=== PATIENT | male | born 1950 | race Caucasian/White ===

== ENCOUNTER → 2018-07-02 08:10 | Outpatient (CLI) | payer MEDICARE, OTHER, SELFPAY ==
--- NOTE | 2018-07-02 | DI.RAD.S_ITS ---
PROCEDURE: XR CHEST 2V INDICATIONS: COUGH VARIANT ASTHMA TECHNIQUE: 2 views of the chest were acquired. COMPARISON: None. FINDINGS: Surgical changes and devices: None. Lungs and pleura: Lungs are clear. No pleural effusions or pneumothorax. Mediastinum: Mediastinal contours are normal. Heart size is normal. Bones and chest wall: No suspicious bony abnormalities. Soft tissues appear unremarkable. IMPRESSION: No acute cardiopulmonary disease. Dictated by: Jessy Bernal M.D. on 07/02/2018 at 8:55 Approved by: Jessy Bernal M.D. on 07/02/2018 at 8:55
== END ==
PROVIDERS: PCP Internal Medicine; Visit Provider Internal Medicine
DX: J45.991 Cough variant asthma (principal)
CPT/HCPCS: 71046

== ENCOUNTER → 2018-11-08 13:37 | Outpatient (CLI) | payer MEDICARE, OTHER, SELFPAY ==
[2018-11-08 14:09] LABS: Add Manual Diff / Slide Review NO; Basophils Absolute Auto 100 /uL (0-100); Basophils Percent Auto 0.6 % (0-2); Eosinophils Absolute Auto 200 /uL (0-450); Eosinophils Percent Auto 2.1 % (2-4); Hematocrit 45.1 % (41-53); Hemoglobin 15.1 g/dL (13.5-17.5); Lymphocytes Absolute Auto 2200 /uL (1100-4500); Lymphocytes Percent Auto 25.9 % (25-40); Mean Corpuscular HGB Conc 33.5 % (30-36); Mean Corpuscular Hemoglobin 30.7 PG (26-34); Mean Corpuscular Volume 91.9 fL (80-100); Monocytes Absolute Auto 600 /uL (0-900); Neutrophils Absolute Auto 5400 /uL (1500-7000); Neutrophils Percent Auto 64.4 % (50-75); Platelet Count 251 X10^3/uL (150-400); Red Blood Cell Count 4.91 X10^6/uL (4.5-5.9); Red Cell Distribution Width 13.6 % (11.6-14.8); White Blood Cell Count 8.4 X10^3/uL (4.5-11.0)
[2018-11-08 14:12] LABS: Hemoglobin A1C% w Est Avg Glu 6.2 % (4.0-6.0)
[2018-11-08 14:27] LABS: B Type Natriuretic Peptide < 100 (<100)
[2018-11-08 14:42] LABS: Alanine Aminotransferase 48 IU/L (21-72); Albumin 4.1 g/dL (3.5-5.0); Albumin Globulin Ratio 1.2 (1.0-2.8); Alkaline Phosphatase 78 U/L (38-126); Aspartate Aminotransferase 38 IU/L (17-59); BUN Creatinine Ratio 18.9 (6-22); Bilirubin Total 0.5 mg/dL (0.2-1.3); Blood Urea Nitrogen 17 mg/dL (9-20); Calcium 9.5 mg/dL (8.4-10.2); Carbon Dioxide 24 mmol/L (22-32); Chloride 102 mmol/L (98-107); Cholesterol 150 mg/dL (140-199); Estimated Glomerular Filt Rate > 60.0 mL/min (>60); Globulin 3.3 g/dL (1.7-4.1); Glucose 123 mg/dL (80-110); HDL Cholesterol 43 mg/dL (40-60); HEMOLYSIS 16 (0-50); LDL Cholesterol Calculated 72 mg/dL (<100); Potassium 3.8 mmol/L (3.4-5.1); Sodium 138 mmol/L (137-145); Total Protein 7.4 g/dL (6.3-8.2); Triglycerides 177 mg/dL (35-150)
[2018-11-08 15:11] LABS: TSH w/ Reflex to FT4 1.46 uIU/mL (0.47-4.68)
== END ==
PROVIDERS: PCP Internal Medicine; Visit Provider Internal Medicine
DX: I10 Essential (primary) hypertension (principal); E78.5 Hyperlipidemia, unspecified; I51.7 Cardiomegaly; I48.0 Paroxysmal atrial fibrillation; R73.03 Prediabetes; Z86.010 Personal history of colon polyps
CPT/HCPCS: 36415; 80053; 80061; 83036; 83880; 84443; 85025

== ENCOUNTER → 2019-03-18 14:54 | Outpatient (CLI) | payer MEDICARE, OTHER, SELFPAY ==
--- NOTE | 2019-03-18 | DI.RAD.S_ITS ---
PROCEDURE: XR CHEST 2V INDICATIONS: PERSISTANT COUGH FOR 3 WEEKS OR LONGER TECHNIQUE: 2 views of the chest were acquired. COMPARISON: [facility], CR, XR CHEST 2V, 07/02/2018, 8:19. FINDINGS: Surgical changes and devices: None. Lungs and pleura: Lungs are clear. No pleural effusions or pneumothorax. Mediastinum: Mediastinal contours are normal. Heart size is normal. Bones and chest wall: No suspicious bony abnormalities. Soft tissues appear unremarkable. IMPRESSION: No acute disease Dictated by: Madhu Sood M.D. on 03/18/2019 at 16:15 Approved by: Madhu Sood M.D. on 03/18/2019 at 16:20
== END ==
PROVIDERS: Family Provider Internal Medicine; PCP Internal Medicine; Visit Provider Internal Medicine
DX: R05 Cough (principal)
CPT/HCPCS: 71046

== ENCOUNTER → 2019-03-25 08:45 | Outpatient (CLI) | payer MEDICARE, OTHER, SELFPAY ==
--- NOTE | 2019-03-29 08:36 | PM.PFT.1 ---
Pulmonary Function Test Referral & Results Date Patient Seen: 03/25/19 Requesting provider: Cinthya Bianchi Results: The spirometry demonstrates an FVC of 3.79 L which is 88% of predicted. The FEV1 was measured at 2.65 L which is 83% of predicted. The FEV1/FVC ratio was 70 which is 94% of predicted. Following the administration of bronchodilator there was no appreciable change. Lung volumes show an SVC of 4.29 L which is 96% of predicted. The diffusing capacity was measured at 25.86 which is 83% of predicted. No hemoglobin value was provided, so no correction for potential anemia could be made, if appropriate. The maximum voluntary ventilation was normal Interpretation: This study demonstrates perhaps very mild obstructive lung disease based on slight reduction FEV1 and shape of flow volume loop. There is not appear to be evidence of benefit following bronchodilator administration
== END ==
PROVIDERS: PCP Internal Medicine; Visit Provider Internal Medicine
DX: R05 Cough (principal); Z87.891 Personal history of nicotine dependence
CPT/HCPCS: 94060; 94726; 94729

== ENCOUNTER → 2019-10-02 08:05 | Outpatient (CLI) | payer MEDICARE, OTHER, SELFPAY ==
[2019-10-02 10:03] LABS: Alanine Aminotransferase 57 IU/L (<50); Albumin 3.9 g/dL (3.5-5.0); Albumin Globulin Ratio 1.3 (1.0-2.8); Alkaline Phosphatase 74 U/L (38-126); Aspartate Aminotransferase 49 IU/L (17-59); BUN Creatinine Ratio 24.1 (6-22); Bilirubin Total 0.6 mg/dL (0.2-1.3); Bilirubin Unconjugated 0.5 mg/dL (0.0-1.1); Blood Urea Nitrogen 20 mg/dL (9-20); Calcium 9.2 mg/dL (8.4-10.2); Carbon Dioxide 27 mmol/L (22-32); Chloride 104 mmol/L (98-107); Estimated Glomerular Filt Rate > 60.0 mL/min (>60); Globulin 3.1 g/dL (1.7-4.1); Glucose 126 mg/dL (80-110); HEMOLYSIS < 15 (0-50); Potassium 4.2 mmol/L (3.4-5.1); Sodium 138 mmol/L (137-145)
== END ==
PROVIDERS: Family Provider Internal Medicine; PCP Internal Medicine; Referring Provider Nurse Practitioner Family; Visit Provider Nurse Practitioner Family
DX: I48.91 Unspecified atrial fibrillation (principal)
CPT/HCPCS: 36415; 80053; 80076

== ENCOUNTER → 2020-01-11 08:08 | Outpatient (CLI) | payer MEDICARE, OTHER, SELFPAY ==
[2020-01-11 09:05] LABS: Add Manual Diff / Slide Review NO; Basophils Absolute Auto 100 /uL (0-100); Basophils Percent Auto 1.2 % (0-2); Eosinophils Absolute Auto 200 /uL (0-450); Eosinophils Percent Auto 2.6 % (2-4); Hematocrit 43.1 % (41-53); Hemoglobin 14.5 g/dL (13.5-17.5); Lymphocytes Absolute Auto 2200 /uL (1100-4500); Lymphocytes Percent Auto 32.6 % (25-40); Mean Corpuscular HGB Conc 33.6 % (30-36); Mean Corpuscular Hemoglobin 30.5 PG (26-34); Monocytes Absolute Auto 500 /uL (0-900); Monocytes Percent Auto 7.7 % (3-14); Neutrophils Absolute Auto 3800 /uL (1500-7000); Neutrophils Percent Auto 55.9 % (50-75); Platelet Count 240 X10^3/uL (150-400); Red Blood Cell Count 4.73 X10^6/uL (4.5-5.9); Red Cell Distribution Width 13.7 % (11.6-14.8); White Blood Cell Count 6.7 X10^3/uL (4.5-11.0)
[2020-01-11 09:21] LABS: Hemoglobin A1C% w Est Avg Glu 6.7 % (4.0-6.0)
[2020-01-11 09:23] LABS: Alanine Aminotransferase 33 IU/L (<50); Albumin 4.1 g/dL (3.5-5.0); Albumin Globulin Ratio 1.2 (1.0-2.8); Alkaline Phosphatase 83 U/L (38-126); Aspartate Aminotransferase 32 IU/L (17-59); Bilirubin Total 0.4 mg/dL (0.2-1.3); Blood Urea Nitrogen 16 mg/dL (9-20); Calcium 9.3 mg/dL (8.4-10.2); Carbon Dioxide 27 mmol/L (22-32); Chloride 104 mmol/L (98-107); Cholesterol 119 mg/dL (140-199); Estimated Glomerular Filt Rate > 60.0 mL/min (>60); Globulin 3.3 g/dL (1.7-4.1); Glucose 126 mg/dL (80-110); HDL Cholesterol 31 mg/dL (40-60); HEMOLYSIS < 15 (0-50); LDL Cholesterol Calculated 76 mg/dL (<100); Potassium 3.9 mmol/L (3.4-5.1); Sodium 139 mmol/L (137-145); Total Protein 7.4 g/dL (6.3-8.2); Triglycerides 60 mg/dL (35-150)
[2020-01-11 09:49] LABS: TSH w/ Reflex to FT4 1.12 uIU/mL (0.47-4.68)
== END ==
PROVIDERS: Family Provider Internal Medicine; PCP Internal Medicine; Referring Provider Internal Medicine; Visit Provider Internal Medicine
DX: I10 Essential (primary) hypertension (principal); E78.5 Hyperlipidemia, unspecified; R73.03 Prediabetes; Z12.5 Encounter for screening for malignant neoplasm of prostate; I48.0 Paroxysmal atrial fibrillation
CPT/HCPCS: 36415; 80053; 80061; 83036; 84153; 84443; 85025

== ENCOUNTER → 2020-03-30 12:54 | Outpatient (CLI) | payer MEDICARE, OTHER, SELFPAY ==
--- NOTE | 2020-03-30 | DI.CT.S_ITS ---
PROCEDURE: CT SINUS SCREEN WO CON INDICATIONS: Chronic pansinusitis TECHNIQUE: Noncontrast 3.0 mm axial images acquired from the frontal sinuses to the mid-sella, with coronal and sagittal reformats. For radiation dose reduction, the following was used: automated exposure control, adjustment of mA and/or kV according to patient size. COMPARISON: None. FINDINGS: Image quality: Excellent. Maxillary Sinuses: Moderate mucosal thickening is seen within the right maxillary sinus. There is minimal to mild mucosal thickening within the left maxillary sinus. No significant bony changes are seen. Ethmoid Air Cells: No bony remodeling or destruction. Sinuses are clear. Sphenoid Sinuses: No bony remodeling or destruction. Sinuses are clear. Frontal Sinuses: No bony remodeling or destruction. Mild mucosal thickening is seen within the inferior left frontal sinus. Ostiomeatal Complexes: Ostiomeatal complexes are patent. No Alvino cells. Miscellaneous: Visualized intra-orbital contents are normal. There are small bilateral jose bullosa. There is minimal rightward nasal septal deviation. IMPRESSION: Paranasal sinus disease is seen, which is most prominent within the right maxillary sinus. Dictated by: Tanner Zuniga M.D. on 03/30/2020 at 13:16 Approved by: Tanner Zuniga M.D. on 03/30/2020 at 13:17
== END ==
PROVIDERS: Family Provider Internal Medicine; PCP Internal Medicine; Referring Provider Internal Medicine; Visit Provider Otolaryngology
DX: J32.4 Chronic pansinusitis (principal); J34.89 Other specified disorders of nose and nasal sinuses; R09.82 Postnasal drip
CPT/HCPCS: 70486

== ENCOUNTER → 2020-07-03 08:15 | Outpatient (CLI) | payer MEDICARE, OTHER, SELFPAY ==
--- NOTE | 2020-07-03 08:16 | DI.US.S_ITS ---
PROCEDURE: US ABD AORTA ANEURYSM SCREEN INDICATIONS: AAA SCREEN TECHNIQUE: Real time scanning was performed of the aorta and iliac arteries, with image documentation. COMPARISON: None. FINDINGS: Aorta: Proximal aortic obscured by bowel gas. Mid-aorta measures 1.5 cm. Distal aortic diameter is 1.4 cm. Iliac arteries: Right common iliac artery measures 0.9 cm. Left common iliac artery measures 1.1 cm. IMPRESSION: No evidence of abdominal aortic aneurysm. Please note proximal abdominal aorta is obscured by bowel gas and cannot be evaluated. Dictated by: Thelma Eduardo MD, PhD on 07/03/2020 at 9:57 Approved by: Thelma Eduardo MD, PhD on 07/03/2020 at 9:58
== END ==
PROVIDERS: Family Provider Internal Medicine; PCP Student in an Organized Health Care Education/Training Program; Referring Provider Student in an Organized Health Care Education/Training Program; Visit Provider Student in an Organized Health Care Education/Training Program
DX: Z13.6 Encounter for screening for cardiovascular disorders (principal); Z87.891 Personal history of nicotine dependence
CPT/HCPCS: 76706

== ENCOUNTER → 2020-07-27 15:55 | Outpatient (CLI) | payer MEDICARE, OTHER, SELFPAY ==
[2020-07-27 16:53] LABS: Add Manual Diff / Slide Review NO; Basophils Absolute Auto 100 /uL (0-100); Basophils Percent Auto 1.3 % (0-2); Eosinophils Absolute Auto 200 /uL (0-450); Eosinophils Percent Auto 3.2 % (2-4); Hemoglobin 13.9 g/dL (13.5-17.5); Lymphocytes Absolute Auto 2500 /uL (1100-4500); Lymphocytes Percent Auto 33.3 % (25-40); Mean Corpuscular HGB Conc 33.9 % (30-36); Mean Corpuscular Hemoglobin 30.4 PG (26-34); Mean Corpuscular Volume 89.9 fL (80-100); Monocytes Absolute Auto 600 /uL (0-900); Monocytes Percent Auto 7.5 % (3-14); Neutrophils Absolute Auto 4200 /uL (1500-7000); Neutrophils Percent Auto 54.7 % (50-75); Platelet Count 260 X10^3/uL (150-400); Red Blood Cell Count 4.56 X10^6/uL (4.5-5.9); Red Cell Distribution Width 13.6 % (11.6-14.8); White Blood Cell Count 7.6 X10^3/uL (4.5-11.0)
[2020-07-27 17:16] LABS: BUN Creatinine Ratio 18.6 (6-22); Blood Urea Nitrogen 16 mg/dL (9-20); Calcium 9.4 mg/dL (8.4-10.2); Carbon Dioxide 28 mmol/L (22-32); Chloride 102 mmol/L (98-107); Cholesterol 149 mg/dL (140-199); Estimated Glomerular Filt Rate > 60.0 mL/min (>60); Glucose 108 mg/dL (80-110); HDL Cholesterol 34 mg/dL (40-60); HEMOLYSIS < 15 (0-50); LDL Cholesterol Calculated 75 mg/dL (<100); Potassium 3.9 mmol/L (3.4-5.1); Sodium 138 mmol/L (137-145); Triglycerides 202 mg/dL (35-150)
[2020-07-27 17:20] LABS: Hemoglobin A1C% w Est Avg Glu 6.6 % (4.0-6.0)
== END ==
PROVIDERS: Family Provider Internal Medicine; PCP Student in an Organized Health Care Education/Training Program; Referring Provider Internal Medicine Cardiovascular Disease; Visit Provider Internal Medicine Cardiovascular Disease
DX: I10 Essential (primary) hypertension (principal); R73.03 Prediabetes
CPT/HCPCS: 36415; 80048; 80061; 83036; 85025

== ENCOUNTER → 2020-11-26 07:29 | Outpatient (CLI) | payer MEDICARE, OTHER, SELFPAY ==
[2020-11-26 08:23] LABS: Add Manual Diff / Slide Review NO; Basophils Absolute Auto 100 /uL (0-100); Basophils Percent Auto 1.2 % (0-2); Eosinophils Absolute Auto 200 /uL (0-450); Hematocrit 44.9 % (41-53); Lymphocytes Absolute Auto 2700 /uL (1100-4500); Lymphocytes Percent Auto 40.5 % (25-40); Mean Corpuscular HGB Conc 33.4 % (30-36); Mean Corpuscular Volume 89.9 fL (80-100); Monocytes Absolute Auto 600 /uL (0-900); Monocytes Percent Auto 9.6 % (3-14); Neutrophils Absolute Auto 3000 /uL (1500-7000); Neutrophils Percent Auto 45.7 % (50-75); Platelet Count 220 X10^3/uL (150-400); Red Blood Cell Count 4.99 X10^6/uL (4.5-5.9); Red Cell Distribution Width 14.5 % (11.6-14.8); White Blood Cell Count 6.6 X10^3/uL (4.5-11.0)
[2020-11-26 08:40] LABS: BUN Creatinine Ratio 22.9 (6-22); Blood Urea Nitrogen 19 mg/dL (9-20); Calcium 9.4 mg/dL (8.4-10.2); Carbon Dioxide 28 mmol/L (22-32); Chloride 103 mmol/L (98-107); Estimated Glomerular Filt Rate > 60.0 mL/min (>60); Glucose 100 mg/dL (80-110); HEMOLYSIS < 15 (0-50); Potassium 4.1 mmol/L (3.4-5.1); Sodium 138 mmol/L (137-145)
== END ==
PROVIDERS: Family Provider Internal Medicine; PCP Student in an Organized Health Care Education/Training Program; Referring Provider Internal Medicine Cardiovascular Disease; Visit Provider Internal Medicine Cardiovascular Disease
DX: I48.0 Paroxysmal atrial fibrillation (principal)
CPT/HCPCS: 36415; 80048; 85025

== ENCOUNTER → 2021-01-14 08:10 | Outpatient (CLI) | payer MEDICARE, OTHER, SELFPAY ==
[2021-01-14 09:33] LABS: Hemoglobin A1C% w Est Avg Glu 5.6 % (4.0-6.0)
[2021-01-14 10:18] LABS: Prostate Specific Antigen Scrn 1.84 ng/mL (0.1-4.0)
== END ==
PROVIDERS: Family Provider Internal Medicine; PCP Student in an Organized Health Care Education/Training Program; Referring Provider Student in an Organized Health Care Education/Training Program; Visit Provider Student in an Organized Health Care Education/Training Program
DX: E11.9 Type 2 diabetes mellitus without complications (principal); Z12.5 Encounter for screening for malignant neoplasm of prostate
CPT/HCPCS: 36415; 83036; G0103

== ENCOUNTER 2021-03-16 17:47 | Emergency (ER) | payer MEDICARE, OTHER, SELFPAY ==
[2021-03-16 17:50] VITALS: BP 200/90; PULSE 85; RESP 20; TEMP 36.7; O2SAT 98
--- NOTE | 2021-03-16 17:54 | DI.RAD.S_ITS ---
PROCEDURE: XR CHEST 1V INDICATIONS: chest pain TECHNIQUE: One view of the chest was acquired. COMPARISON: [facility], CR, XR CHEST 2V, 03/18/2019, 14:55. FINDINGS: Surgical changes and devices: None. Lungs and pleura: Lungs are clear. No pleural effusions or pneumothorax. Mediastinum: Mildly tortuous thoracic aorta is seen. Heart size is enlarged. Bones and chest wall: No suspicious bony lesions. Overlying soft tissues appear unremarkable. IMPRESSION: No acute cardiopulmonary pathology. Dictated by: Salvador Cam M.D. on 03/16/2021 at 19:10 Approved by: Salvador Cam M.D. on 03/16/2021 at 19:11
[2021-03-16 18:27] LABS: Add Manual Diff / Slide Review NO; Basophils Absolute Auto 100 /uL (0-100); Basophils Percent Auto 0.7 % (0-2); Eosinophils Absolute Auto 200 /uL (0-450); Eosinophils Percent Auto 2.2 % (2-4); Hematocrit 41.7 % (41-53); Hemoglobin 14.5 g/dL (13.5-17.5); Lymphocytes Absolute Auto 2500 /uL (1100-4500); Lymphocytes Percent Auto 27.4 % (25-40); Mean Corpuscular HGB Conc 34.7 % (30-36); Mean Corpuscular Hemoglobin 31.3 PG (26-34); Mean Corpuscular Volume 90.2 fL (80-100); Monocytes Absolute Auto 600 /uL (0-900); Monocytes Percent Auto 6.6 % (3-14); Neutrophils Absolute Auto 5700 /uL (1500-7000); Neutrophils Percent Auto 63.1 % (50-75); Platelet Count 215 X10^3/uL (150-400); Red Blood Cell Count 4.63 X10^6/uL (4.5-5.9); Red Cell Distribution Width 14.3 % (11.6-14.8); White Blood Cell Count 9.1 X10^3/uL (4.5-11.0)
[2021-03-16 18:29] LABS: Alanine Aminotransferase 23 IU/L (<50); Albumin 4.4 g/dL (3.5-5.0); Albumin Globulin Ratio 1.4 (1.0-2.8); Alkaline Phosphatase 76 U/L (38-126); Aspartate Aminotransferase 29 IU/L (17-59); BUN Creatinine Ratio 22.2 (6-22); Bilirubin Total 0.4 mg/dL (0.2-1.3); Blood Urea Nitrogen 20 mg/dL (9-20); Calcium 9.1 mg/dL (8.4-10.2); Carbon Dioxide 26 mmol/L (22-32); Chloride 101 mmol/L (98-107); Creatine Kinase 111 U/L (55-170); Estimated Glomerular Filt Rate > 60.0 mL/min (>60); Globulin 3.2 g/dL (1.7-4.1); Glucose 168 mg/dL (80-110); HEMOLYSIS < 15 (0-50); Lipase 107 U/L (23-300); Potassium 3.4 mmol/L (3.4-5.1); Sodium 136 mmol/L (137-145); Total Protein 7.6 g/dL (6.3-8.2)
[2021-03-16 18:40] LABS: Troponin I < 0.012 ng/mL (0.01-0.034)
[2021-03-16 18:44] LABS: CKMB % Relative Index 1.4 % (1.5-5.0); Creatine Kinase MB 1.53 ng/mL (<2.37)
[2021-03-16 18:54] VITALS: PULSE 69; RESP 24; O2SAT 98
[2021-03-16 19:00] VITALS: PULSE 65; RESP 13; O2SAT 98
[2021-03-16 19:09] VITALS: BP 143/64; PULSE 76; RESP 25; O2SAT 94
--- NOTE | 2021-03-16 19:18 | ED.ARRPALP ---
HPI - Arrhythmia/Palpitations General Chief Complaint: Arrhythmia/Palpitations Stated Complaint: STATES IRRATIC HEARTRATE Time Seen by Provider: 03/16/21 18:25 Source: patient Mode of arrival: Ambulatory History of Present Illness HPI narrative: Patient is a 70-year-old male. Does have a history of atrial fibrillation. Is anticoagulated for this. Takes medications for AFib as well. States that earlier this afternoon he was having an episode where he states that his heart was beating fast and skipping beats beating very abnormal. He denies any chest pain or shortness of breath or lightheadedness that time. At the time I evaluated the patient he was asymptomatic. He did take his evening medicine during the period of time between the onset of the symptoms and his evaluation here in the ER. Related Data Home Medications Medication Instructions Recorded Confirmed flecainide 100 mg tablet 100 mg PO BID #0 04/27/16 12/07/20 glucosamine #0 04/27/16 12/07/20 sulfate-methylsulfonylmethane 250 mg-250 mg capsule multivitamin (Multiple Vitamins) 1 tab PO QDAY #0 04/27/16 12/07/20 omega 6-hwx-vqx-fish oil 1,000 mg 1,000 mg PO #0 04/27/16 12/07/20 (120 mg-180 mg) capsule (Fish Oil) albuterol sulfate 90 mcg/actuation 2 puff INHALATION Q6H PRN 07/01/20 12/07/20 aerosol inhaler apixaban 5 mg tablet (Eliquis) 5 mg PO BID 08/27/20 12/07/20 Previous Rx's Medication Instructions Recorded atenolol 25 mg tablet 25 mg PO QDAY #90 tab 10/28/20 triamterene 37.5 1 tab PO QDAY #90 tab 10/28/20 mg-hydrochlorothiazide 25 mg tablet Allergies Allergy/AdvReac Type Severity Reaction Status Date / Time No Known Drug Allergies Allergy Unverified 12/07/20 10:26 Review of Systems Constitutional Constitutional: Denies headache(s) ENT Ears, Nose, Mouth, and Throat: Denies vertigo, Denies dizziness and Denies headache(s) Cardiovascular Cardiovascular: Reports as per HPI and Reports system reviewed and no additional complaints, except as documented Respiratory Respiratory: Reports as per HPI and Reports system reviewed and no additional complaints, except as documented Neurologic Neurologic: Denies vertigo, Denies dizziness and Denies headache(s) Hematologic/Lymphatic On Anticoagulants: Yes Patient History Medical History Atrial fibrillation Diet-controlled type 2 diabetes mellitus Essential hypertension Social History Smoking Status: Former smoker Smoking Status: Former smoker Exam Initial Vital Signs Initial Vital Signs: Vital Signs Temperature 98.1 F 03/16/21 17:50 Pulse Rate 85 03/16/21 17:50 Respiratory Rate 20 03/16/21 17:50 Blood Pressure 200/90 H 03/16/21 17:50 Pulse Oximetry 98 03/16/21 17:50 Const General: cooperative, healthy appearing and comfortable Limitations: mental status not altered HENMT Head: normal to inspection and normocephalic Neck Neck: normal visual inspection Resp Effort & Inspection: normal respiratory effort Auscultation: clear to auscultation bilaterally Cardio Rate: regular rate Rhythm: regular rhythm GI Inspection: non-distended Palpation: soft Back/Spine/Pelvis Back: normal to inspection Skin General: no rashes or lesions noted Neuro General: patient alert, patient awake, patient oriented x3 and moves all extremities Extrem General: normal to inspection Psych Appearance: grossly normal and well kempt Course Orders Ordered: ED Orders 03/16/21 17:54 XR chest 1V Stat EKG-12 Lead Stat 03/16/21 18:08 Complete Blood Count AUTO DIFF Stat Comprehensive Metabolic Panel Stat Lipase Stat Troponin & CK Cardiac Panel Stat Vital Signs Vital signs: Vital Signs - 8 hr 03/16/21 17:50 03/16/21 18:54 03/16/21 19:00 Temperature 98.1 F Pulse Rate 85 69 65 Respiratory Rate 20 24 13 Blood Pressure 200/90 H Pulse Oximetry 98 98 98 03/16/21 19:09 Temperature Pulse Rate 76 Respiratory Rate 25 H Blood Pressure 143/64 H Pulse Oximetry 94 MDM - Arrhythmia/Palpitations Lab Data Attestation: I reviewed the patient's lab results. Result diagrams: 03/16/21 18:08 03/16/21 18:08 Labs: Lab Results 03/16/21 03/16/21 Range/Units 18:08 18:08 WBC 9.1 (4.5-11.0) X10^3/uL RBC 4.63 (4.5-5.9) X10^6/uL Hgb 14.5 (13.5-17.5) g/dL Hct 41.7 (41-53) % MCV 90.2 (80-100) fL MCH 31.3 (26-34) PG MCHC 34.7 (30-36) % RDW 14.3 (11.6-14.8) % Plt Count 215 (150-400) X10^3/uL Neut % (Auto) 63.1 (50-75) % Lymph % (Auto) 27.4 (25-40) % Posey % (Auto) 6.6 (3-14) % Eos % (Auto) 2.2 (2-4) % Baso % (Auto) 0.7 (0-2) % Neut # (Auto) 5700 (9945-0051) /uL Lymph # (Auto) 2500 (8656-1976) /uL Posey # (Auto) 600 (0-900) /uL Eos # (Auto) 200 (0-450) /uL Baso # (Auto) 100 (0-100) /uL Sodium 136 L (137-145) mmol/L Potassium 3.4 (3.4-5.1) mmol/L Chloride 101 (98-107) mmol/L Carbon Dioxide 26 (22-32) mmol/L BUN 20 (9-20) mg/dL Creatinine 0.90 (0.66-1.25) mg/dL Estimated GFR > 60.0 (>60) mL/min BUN/Creatinine Ratio 22.2 H (6-22) Glucose 168 H (80-110) mg/dL Calcium 9.1 (8.4-10.2) mg/dL Total Bilirubin 0.4 (0.2-1.3) mg/dL AST 29 (17-59) IU/L ALT 23 (<50) IU/L Alkaline Phosphatase 76 (38-126) U/L Total Creatine Kinase 111 (55-170) U/L CK-MB (CK-2) 1.53 (<2.37) ng/mL CK-MB (CK-2) Rel Index 1.4 L (1.5-5.0) % Troponin I < 0.012 (0.01-0.034) ng/mL Total Protein 7.6 (6.3-8.2) g/dL Albumin 4.4 (3.5-5.0) g/dL Globulin 3.2 (1.7-4.1) g/dL Albumin/Globulin Ratio 1.4 (1.0-2.8) Lipase 107 (23-300) U/L Imaging Data Chest x-ray: Radiologist's Impresson: [address] [address] XRay Report Signed Patient: Prem Gale MR#: [id number] : 1950 Acct:[id number] Age/Sex: 70 / M Date of Service: 03/16/21 Loc: ED Accession Number: [id number] ?? Procedure: XR chest 1V Ordering Provider: Del Augustine D.O. PROCEDURE:? XR CHEST 1V ? INDICATIONS:? chest pain ? TECHNIQUE:? One view of the chest was acquired.? ? COMPARISON:? [facility], CR, XR CHEST 2V, 03/18/2019, 14:55. ? FINDINGS:? ? Surgical changes and devices:? None.? ? Lungs and pleura:? Lungs are clear.? No pleural effusions or pneumothorax.? ? Mediastinum:? Mildly tortuous thoracic aorta is seen.? Heart size is enlarged. ? Bones and chest wall:? No suspicious bony lesions.? Overlying soft tissues appear unremarkable.? ? IMPRESSION:? No acute cardiopulmonary pathology. ? ? Dictated by: Salvador Cam M.D. on 03/16/2021 at 19:10 ? ? Approved by: Salvador Cam M.D. on 03/16/2021 at 19:11?? ECG Data Attestation: I personally reviewed and interpreted this ECG as follows: Interpretation: Sinus rhythm First-degree AV block KS interval 284 milliseconds Ventricular rate 80 Occasional PACs Normal QTC No ST T wave changes MDM Narrative Medical decision making narrative: Patient did have couple PVCs on his EKG. He was in sinus rhythm. Was asymptomatic the time of my exam. I did discuss this with the patient. We did discuss the possibility that he was in atrial fibrillation however the medicines that he took at home potentially to care this issue. We did discuss the limitations with regard to the workup in the EKG performed here in the ER. 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 Plan will be is to hold on further workup for now. Will not make any changes to his medications. 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 He was given return precautions and follow-up instructions. He expressed understanding and agreement. Discharge Plan Departure Patient Disposition: Home Clinical Impression: Palpitations Instructions: Arrhythmias Activity Restrictions/Additional Instructions: I do recommend that you keep all of your scheduled medical appointments. Continue to take all of your medications as directed. Return to the emergency department for any new or worsening symptoms Prescriptions: No Action multivitamin [Multiple Vitamins] 1 EACH tablet 1 tab PO QDAY Qty: 0 0RF flecainide 100 MG tablet 100 mg PO BID Qty: 0 0RF glucosamine sulfate-msm 1 EACH capsule Qty: 0 0RF omega 7-ppw-pbm-fish oil [Fish Oil] 1,000 MG capsule 1,000 mg PO Qty: 0 0RF atenolol 25 mg tablet 25 mg PO QDAY Qty: 90 2RF triamterene-hydrochlorothiazid 37.5-25 mg tablet 1 tab PO QDAY Qty: 90 2RF albuterol sulfate 90 mcg/actuation HFA aerosol inhaler 2 puff inhalation Q6H PRN0RF Eliquis 5 mg tablet 5 mg PO BID 0RF Referrals: Jonathan Jacques MD [Primary Care Provider] -
== END 2021-03-16 19:27 | disposition home or self-care (01) ==
PROVIDERS: Emergency Provider Emergency Medicine; Family Provider Internal Medicine; PCP Student in an Organized Health Care Education/Training Program
DX: I49.3 Ventricular premature depolarization (principal)
CPT/HCPCS: 71045; 80053; 82550; 82553; 83690; 84484; 85025; 93005; 93010; 99283; 99284

== ENCOUNTER → 2021-09-13 06:58 | Outpatient (CLI) | payer MEDICARE, OTHER, SELFPAY ==
[2021-09-13 07:38] LABS: Add Manual Diff / Slide Review NO; Basophils Absolute Auto 100 /uL (0-100); Basophils Percent Auto 1.3 % (0-2); Eosinophils Absolute Auto 200 /uL (0-450); Eosinophils Percent Auto 2.7 % (2-4); Hematocrit 41.7 % (41-53); Hemoglobin 14.4 g/dL (13.5-17.5); Lymphocytes Absolute Auto 2300 /uL (1100-4500); Lymphocytes Percent Auto 37.6 % (25-40); Mean Corpuscular HGB Conc 34.6 % (30-36); Mean Corpuscular Hemoglobin 31.4 PG (26-34); Mean Corpuscular Volume 90.8 fL (80-100); Monocytes Absolute Auto 500 /uL (0-900); Monocytes Percent Auto 7.9 % (3-14); Neutrophils Absolute Auto 3000 /uL (1500-7000); Neutrophils Percent Auto 50.5 % (50-75); Platelet Count 197 X10^3/uL (150-400); Red Blood Cell Count 4.59 X10^6/uL (4.5-5.9); Red Cell Distribution Width 14.2 % (11.6-14.8)
[2021-09-13 08:15] LABS: BUN Creatinine Ratio 23.9 (6-22); Blood Urea Nitrogen 21 mg/dL (9-20); Calcium 8.9 mg/dL (8.4-10.2); Carbon Dioxide 28 mmol/L (22-32); Chloride 105 mmol/L (98-107); Estimated Glomerular Filt Rate > 60 mL/min (>60); Glucose 110 mg/dL (80-110); HEMOLYSIS < 15 (0-50); Potassium 4.2 mmol/L (3.4-5.1); Sodium 139 mmol/L (137-145)
== END ==
PROVIDERS: Family Provider Internal Medicine; PCP Family Medicine; Referring Provider Internal Medicine Cardiovascular Disease; Visit Provider Internal Medicine Cardiovascular Disease
DX: Z79.01 Long term (current) use of anticoagulants (principal); I48.0 Paroxysmal atrial fibrillation
CPT/HCPCS: 36415; 80048; 85025

== ENCOUNTER → 2021-11-10 07:35 | Outpatient (CLI) | payer MEDICARE, OTHER, SELFPAY ==
[2021-11-10 08:18] LABS: Hemoglobin A1C% w Est Avg Glu 5.6 % (4.0-6.0)
== END ==
PROVIDERS: Family Provider Internal Medicine; PCP Family Medicine; Referring Provider Family Medicine; Visit Provider Family Medicine
DX: E11.9 Type 2 diabetes mellitus without complications (principal)
CPT/HCPCS: 36415; 83036

== ENCOUNTER → 2023-08-09 07:48 | Outpatient (CLI) | payer MEDICARE, SELFPAY ==
[2023-08-09 08:39] LABS: Add Manual Diff / Slide Review NO; Basophils Absolute Auto 100 /uL (0-100); Basophils Percent Auto 1.2 % (0-2); Eosinophils Absolute Auto 200 /uL (0-450); Eosinophils Percent Auto 2.4 % (2-4); Hemoglobin 14.6 g/dL (13.5-17.5); Lymphocytes Absolute Auto 2300 /uL (1100-4500); Lymphocytes Percent Auto 33.2 % (25-40); Mean Corpuscular Hemoglobin 31.2 PG (26-34); Mean Corpuscular Volume 91.9 fL (80-100); Monocytes Absolute Auto 600 /uL (0-900); Neutrophils Absolute Auto 3800 /uL (1500-7000); Neutrophils Percent Auto 54.2 % (50-75); Platelet Count 235 X10^3/uL (150-400); Red Blood Cell Count 4.68 X10^6/uL (4.5-5.9); Red Cell Distribution Width 14.3 % (11.6-14.8)
[2023-08-09 09:05] LABS: BUN Creatinine Ratio 23.5 (6-22); Blood Urea Nitrogen 20 mg/dL (9-20); Calcium 9.2 mg/dL (8.4-10.2); Carbon Dioxide 28 mmol/L (22-32); Chloride 104 mmol/L (98-107); Estimated Glomerular Filt Rate > 60 mL/min (>60); Glucose 118 mg/dL (80-110); HEMOLYSIS < 15 (0-50); Potassium 3.8 mmol/L (3.4-5.1); Sodium 138 mmol/L (137-145)
== END ==
PROVIDERS: Family Provider Internal Medicine; PCP Family Medicine; Referring Provider Internal Medicine Cardiovascular Disease; Visit Provider Internal Medicine Cardiovascular Disease
DX: I10 Essential (primary) hypertension (principal); I77.89 Other specified disorders of arteries and arterioles; Z79.01 Long term (current) use of anticoagulants
CPT/HCPCS: 36415; 80048; 85025

== ENCOUNTER 2023-08-10 21:33 | Emergency (ER) | payer MEDICARE, SELFPAY ==
[2023-08-10] VITALS (7 sets, daily range): BP systolic 155–201; BP diastolic 69–98; PULSE 72–82; RESP 18; TEMP 36.9; O2SAT 93–98; BMI 30.7
--- NOTE | 2023-08-10 22:03 | ED_ITS ---
HPI - General Adult General Chief complaint: Hypertension Stated complaint: very high blood pressure Time Seen by Provider: 08/10/23 21:51 Source: patient and family Mode of arrival: Ambulatory History of Present Illness HPI narrative: 73-year-old male with history of hypertension, atrial fibrillation on flecainide and Eliquis presents by private vehicle from home for elevated blood pressures. Patient stated that he went to a routine dental appointment this morning and when they took his vitals they told him he had high blood pressure. This evening he pulled out his home cuff and noticed that it was 180/90. He was very concerned at his high blood pressures and decided to present for evaluation. He is on atenolol and triamterene/hydrochlorothiazide. He denies any recent medication changes. Denies chest pain, shortness of breath, worst headache of life, vision changes, leg swelling. Patient admits that he does not frequently check his blood pressure as every time he goes to a doctor's appointment it was normal. Related Data Home Medications Medication Instructions Recorded Confirmed flecainide 100 mg tablet 100 mg PO BID ##0 04/27/16 12/07/20 glucosamine ##0 04/27/16 12/07/20 sulfate-methylsulfonylmethane 250 mg-250 mg capsule multivitamin (Multiple Vitamins 1 tab PO QDAY ##0 04/27/16 12/07/20 tablet) omega 5-qte-mxt-fish oil 1,000 mg 1,000 mg PO ##0 04/27/16 12/07/20 (120 mg-180 mg) capsule (Fish Oil) albuterol sulfate 90 mcg/actuation 2 puff inhalation Q6H PRN 07/01/20 12/07/20 aerosol inhaler apixaban 5 mg tablet (Eliquis) 5 mg PO BID 08/27/20 12/07/20 Previous Rx's Medication Instructions Recorded atenolol 25 mg tablet 25 mg PO QDAY #90 tabs 10/28/20 triamterene 37.5 1 tab PO QDAY #90 tabs 10/28/20 mg-hydrochlorothiazide 25 mg tablet amlodipine 5 mg tablet 5 mg PO DAILY #30 tabs 08/10/23 Allergies Allergy/AdvReac Type Severity Reaction Status Date / Time No Known Drug Allergies Allergy Unverified 12/07/20 10:26 Review of Systems Review of Systems Narrative: See HPI Patient History Medical History Atrial fibrillation Essential hypertension Diet-controlled type 2 diabetes mellitus Social History Smoking Status: Current some day smoker Smoking Status: Current some day smoker tobacco type: cigars alcohol intake frequency: 0-2 drinks per day Substance Use Type: does not use Exam Initial Vital Signs Initial Vital Signs: Vital Signs Temperature 98.4 F 08/10/23 21:41 Pulse Rate 74 08/10/23 21:41 Respiratory Rate 18 08/10/23 21:41 Blood Pressure 201/98 H 08/10/23 21:41 Pulse Oximetry 98 08/10/23 21:41 Oxygen Delivery Method Room Air 08/10/23 21:41 Const: Awake, alert, no acute distress, nontoxic appearing Cardiac: regular rate, regular rhythm RESP: unlabored, clear bilaterally, no wheezing GI: Soft, nontender, nondistended, no rebound, no guarding Skin: Warm, Dry, intact, no rashes Neuro: AO x3, CN II-XII grossly intact, moves all extremities Course Orders Ordered: ED Orders 08/10/23 22:03 EKG-12 Lead Stat 08/10/23 22:42 CBC Auto Diff [Complete Blood Count AUTO DIFF] Stat CMP [Comprehensive Metabolic Panel] Stat Troponin & CK Cardiac Panel Stat 08/10/23 23:02 UA Complete [Urinalysis and Microscopic] Stat Discontinued Medications Amlodipine Besylate (Amlodipine 5 Mg Tablet) 5 mg PO NOW ONE Stop: 08/10/23 23:30 Last Admin: 08/10/23 23:41 Dose: 5 mg Documented By: IGLESIA Vital Signs Vital signs: Vital Signs - 8 hr 08/10/23 22:30 08/10/23 22:30 08/10/23 23:03 Pulse Rate 73 82 Blood Pressure 155/69 H Pulse Oximetry 95 93 08/10/23 23:04 08/10/23 23:04 08/10/23 23:30 Pulse Rate 81 72 Blood Pressure 190/79 H Pulse Oximetry 95 95 08/10/23 23:30 Pulse Rate Blood Pressure 166/73 H Pulse Oximetry Medical Decision Making Lab Data 08/10/23 22:42 08/10/23 22:42 Labs: Lab Results 08/10/23 08/10/23 Range/Units 22:42 23:02 WBC 7.9 (4.5-11.0) X10^3/uL RBC 4.86 (4.5-5.9) X10^6/uL Hgb 15.2 (13.5-17.5) g/dL Hct 44.7 (41-53) % MCV 91.9 (80-100) fL MCH 31.3 (26-34) PG MCHC 34.1 (30-36) % RDW 14.2 (11.6-14.8) % Plt Count 234 (150-400) X10^3/uL Neut % (Auto) 57.3 (50-75) % Lymph % (Auto) 29.8 (25-40) % Isabella % (Auto) 9.4 (3-14) % Eos % (Auto) 2.8 (2-4) % Baso % (Auto) 0.7 (0-2) % Neut # (Auto) 4500 (0115-2550) /uL Lymph # (Auto) 2400 (5549-0768) /uL Isabella # (Auto) 700 (0-900) /uL Eos # (Auto) 200 (0-450) /uL Baso # (Auto) 100 (0-100) /uL Sodium 138 (137-145) mmol/L Potassium 3.6 (3.4-5.1) mmol/L Chloride 104 (98-107) mmol/L Carbon Dioxide 27 (22-32) mmol/L BUN 20 (9-20) mg/dL Creatinine 1.09 (0.66-1.25) mg/dL Estimated GFR > 60 (>60) mL/min BUN/Creatinine Ratio 18.3 (6-22) Glucose 107 (80-110) mg/dL Calcium 9.6 (8.4-10.2) mg/dL Total Bilirubin 0.5 (0.2-1.3) mg/dL AST 35 (17-59) IU/L ALT 36 (<50) IU/L Alkaline Phosphatase 89 (38-126) U/L Total Creatine Kinase 109 (55-170) U/L Troponin I < 0.012 (0.01-0.034) ng/mL Total Protein 8.4 H (6.3-8.2) g/dL Albumin 4.8 (3.5-5.0) g/dL Globulin 3.6 (1.7-4.1) g/dL Albumin/Globulin Ratio 1.3 (1.0-2.8) Urine Color Yellow Urine Appearance Clear Urine pH 6.0 (4.5-8.0) Ur Specific [place] 1.015 (1.000-1.035) Urine Protein Negative (Negative) Urine Glucose (UA) Negative (Negative) g/dL Urine Ketones Negative (NEGATIVE) Urine Occult Blood Negative (Negative) Urine Nitrate Negative (Negative) Urine Bilirubin Negative (NEGATIVE) Urine Urobilinogen 0.2 (0.2) E.U./dL Ur Leukocyte Esterase Negative (NEGATIVE) Urine RBC None seen (0-5/HPF) Urine WBC None seen (0-5/HPF) Ur Squamous Epith Cells None seen (0-5/HPF) Urine Bacteria None seen (None) Ur Culture Indicated? Cult not indicated Vol Urine Centrifuged 10ml (spun) MDM Narrative Medical decision making narrative: Asymptomatic hypertension, incidentally found due to dentist appointment this morning. Patient was hypertensive on arrival, however there are no signs or symptoms of hypertensive emergency. Laboratory work is reviewed, there are no abnormalities. Electrolytes are within normal limits, kidney function normal, EKG sinus rhythm. Patient counseled on lab findings and reassured. Patient states that he was about to go on a 2 week vacation with his to [place]. Patient will likely need medication adjustment for his vacation. Plan to avoid increasing his triamterene hydrochlorothiazide to prevent electrolyte disturbances such as hypokalemia. Plan to add on 5 mg daily amlodipine. Initial dose given in emergency department and prescription sent to pharmacy of choice. Patient advised to follow up with his primary care physician for his high blood pressure and to keep a daily BP log. Discharge Plan Departure Patient Disposition: Home Clinical Impression: Hypertension Instructions: DI for High Blood Pressure Activity Restrictions/Additional Instructions: Your blood work today showed no abnormal findings. I am starting you on a new low-dose blood pressure medication called amlodipine. Take 5 mg daily. Keep a daily blood pressure log and bring this to your next primary care appointment. Signs of hypertensive emergency include chest pain, shortness of breath, worst headache of life, or visual disturbances. Prescriptions: New amlodipine 5 mg tablet 5 mg PO DAILY Qty: 30 0RF No Action multivitamin [Multiple Vitamins] 1 EACH tablet 1 tab PO QDAY Qty: 0 flecainide 100 MG tablet 100 mg PO BID Qty: 0 glucosamine sulfate-msm 1 EACH capsule Qty: 0 omega 2-hsf-fnh-fish oil [Fish Oil] 1,000 MG capsule 1,000 mg PO Qty: 0 atenolol 25 mg tablet 25 mg PO QDAY Qty: 90 2RF triamterene-hydrochlorothiazid 37.5-25 mg tablet 1 tab PO QDAY Qty: 90 2RF albuterol sulfate 90 mcg/actuation HFA aerosol inhaler 2 puff inhalation Q6H PRN Eliquis 5 mg tablet 5 mg PO BID Referrals: Berenice Massey MD [Primary Care Provider] - Stand Alone Forms: Patient Portal/API
[2023-08-10 22:51] LABS: Add Manual Diff / Slide Review NO; Basophils Absolute Auto 100 /uL (0-100); Basophils Percent Auto 0.7 % (0-2); Eosinophils Absolute Auto 200 /uL (0-450); Eosinophils Percent Auto 2.8 % (2-4); Hematocrit 44.7 % (41-53); Hemoglobin 15.2 g/dL (13.5-17.5); Lymphocytes Absolute Auto 2400 /uL (1100-4500); Lymphocytes Percent Auto 29.8 % (25-40); Mean Corpuscular HGB Conc 34.1 % (30-36); Mean Corpuscular Hemoglobin 31.3 PG (26-34); Mean Corpuscular Volume 91.9 fL (80-100); Monocytes Absolute Auto 700 /uL (0-900); Monocytes Percent Auto 9.4 % (3-14); Neutrophils Absolute Auto 4500 /uL (1500-7000); Neutrophils Percent Auto 57.3 % (50-75); Platelet Count 234 X10^3/uL (150-400); Red Blood Cell Count 4.86 X10^6/uL (4.5-5.9); Red Cell Distribution Width 14.2 % (11.6-14.8); White Blood Cell Count 7.9 X10^3/uL (4.5-11.0)
--- NOTE | 2023-08-10 22:51 | PC.NURSE ---
denies chest pain
[2023-08-10 23:09] LABS: Alanine Aminotransferase 36 IU/L (<50); Albumin 4.8 g/dL (3.5-5.0); Albumin Globulin Ratio 1.3 (1.0-2.8); Alkaline Phosphatase 89 U/L (38-126); Aspartate Aminotransferase 35 IU/L (17-59); BUN Creatinine Ratio 18.3 (6-22); Bilirubin Total 0.5 mg/dL (0.2-1.3); Blood Urea Nitrogen 20 mg/dL (9-20); Calcium 9.6 mg/dL (8.4-10.2); Carbon Dioxide 27 mmol/L (22-32); Chloride 104 mmol/L (98-107); Creatine Kinase 109 U/L (55-170); Estimated Glomerular Filt Rate > 60 mL/min (>60); Globulin 3.6 g/dL (1.7-4.1); Glucose 107 mg/dL (80-110); HEMOLYSIS < 15 (0-50); Potassium 3.6 mmol/L (3.4-5.1); Sodium 138 mmol/L (137-145); Total Protein 8.4 g/dL (6.3-8.2)
[2023-08-10 23:17] LABS: Appearance Urine UA CLEAR; Bilirubin Urine UA NEGATIVE (NEGATIVE); Color Urine UA YELLOW; Glucose Urine UA NEGATIVE (Negative); Ketones Urine UA NEGATIVE (NEGATIVE); Leukocyte Esterase Urine UA NEGATIVE (NEGATIVE); Nitrite Urine UA NEGATIVE (Negative); Occult Blood Urine UA NEGATIVE (Negative); Protein Urine UA NEGATIVE (Negative); Specific Gravity Urine UA 1.015 (1.000-1.035); Urobilinogen Urine UA 0.2 E.U./dL (0.2)
[2023-08-10 23:20] LABS: Troponin I < 0.012 ng/mL (0.01-0.034)
[2023-08-10 23:24] LABS: Bacteria Urine None Seen; Culture Indicated Urine Cult Not Indicated; RBC Urine None Seen (0-5/HPF); Squamous Epithelial Cell Urine None Seen (0-5/HPF); Urine Volume 10mL (spun); WBC Urine None Seen (0-5/HPF)
[2023-08-10] MEDS: AMLODIPINE 5 MG TABLET PO (23:41)
== END 2023-08-10 23:45 | disposition home or self-care (01) ==
PROVIDERS: Emergency Provider Emergency Medicine; Family Provider Internal Medicine; PCP Family Medicine
DX: I10 Essential (primary) hypertension (principal); F17.290 Nicotine dependence, other tobacco product, uncomplicated
CPT/HCPCS: 36415; 80053; 81001; 82550; 84484; 85025; 93005; 99283; 99284

== ENCOUNTER → 2023-08-11 10:23 | Outpatient (CLI) | payer MEDICARE, SELFPAY ==
--- NOTE | 2023-08-11 10:24 | DI.ECHO.S_ITS ---
[facility] : : [address] : : [place] : : [id number] : : Phone: [phone] Echocardiogram Report + + :Name: LAN FISCHER Study Date: 08/11/2023 Height: 69 in : :Hospital ReadingLocation: Weight: 208 lb : : Gender: Male BSA: 2.1 m2 : :: 1950 Age: 73 yrs BP: 171/91 mmHg: :Reason For Study: OTHER SPECIFIED DISORDERS OF ARTERIES : :Ordering Physician: NBA, : :SAIMA Performed By: Leland Beltran : :Referring: SAIMA LANCASTER : + + Interpretation Summary 1) Normal left ventricular size, wall motion, and systolic function (EF 60- 65%). 2) Grossly, mildly enlarged right ventricle with normal function. 3) No significant valvular abnormalities. 4) The aortic root is mildly dilated at 4.1cm. 5) No prior Echo available for comparison. Procedure: A two-dimensional transthoracic echocardiogram with color flow and Doppler was performed. The study quality was technically adequate. There is no prior echocardiogram noted for this patient. The patient was in sinus rhythm with heart rates between 57-83 bpm during the exam. Left Ventricle: There is mild concentric left ventricular hypertrophy. The left ventricle is normal in size. The ejection fraction is estimated to be 60- 65%. Left ventricular systolic function appears normal without focal wall motion abnormalities. Diastolic parameters suggest a relaxation abnormality of the left ventricle, consistent with probable normal filling pressures. Right Ventricle: The right ventricle is not well visualized. The right ventricle is mildly dilated. The right ventricular systolic function is normal. Atria: The left atrium is mildly dilated. The right atrium is moderately dilated. The interatrial septum grossly appears intact with no obvious evidence for an atrial septal defect. Mitral Valve: The mitral valve is normal in structure and function. There is no mitral valve stenosis. There is trace mitral regurgitation. Aortic Valve: The aortic valve is trileaflet. There is no aortic valve stenosis. No aortic regurgitation is present. Tricuspid Valve: The tricuspid valve is normal in structure and function. There is no tricuspid stenosis. There is trace tricuspid regurgitation. The right ventricular systolic pressure is estimated to be at least 30.9 mmHg based on an estimated right atrial pressure of 3 mm Hg. Pulmonic Valve: The pulmonic valve is not well visualized. There is no pulmonic valvular stenosis. There is no pulmonic valvular regurgitation. Great Vessels: The aortic root is mildly dilated. The dimensions of the ascending aorta are normal. The IVC is of normal diameter and collapses greater than 50% with a sniff. This suggests a low right atrial pressure of 3 mm Hg. Pericardium/ Pleura There is no pericardial effusion. There is no pleural effusion. MMode/2D Measurements & Calculations LVIDd: 4.8 cm LVOT diam: 2.3 cm LVIDs: 3.0 cm Ao root diam: 4.1 cm FS: 36.1 % asc Aorta Diam: 3.4 cm IVSd: 1.1 cm Ao Arch Diam (Prox Trans): 3.3 cm LVPWd: 1.1 cm LV rush. diameter/BSA (cm/m^2): 2.3 LV sys. diameter/BSA (cm/m^2): 1.4 LA A2 area: 25.3 cm2 RA long axis: 5.4 cm LA A4 area: 19.2 cm2 RA area: 22.1 cm2 LA length (vol): 5.9 cm RA vol: 77.6 ml LA vol: 70.0 ml RA : 36.9 ml/m2 LA vol index: 33.3 ml/m2 RVD1 (basal): 4.8 cm TAPSE: 2.6 cm Doppler Measurements & Calculations Ao V2 max: 124.0 cm/sec LVOT Max Ari: 105.8 cm/sec Ao V2 mean: 82.8 cm/sec LV V1 max P.5 mmHg Ao max P.1 mmHg LV V1 VTI: 24.3 cm Ao mean P.1 mmHg ALEC(I,D): 3.8 cm2 Ao V2 VTI: 26.8 cm ALEC(V,D): 3.6 cm2 sev ratio: 0.91 ALEC indexed to BSA (cm^2/m^2): 1.8 MV E max ari: 63.0 cm/sec TR max ari: 264.3 cm/sec MV A max ari: 74.8 cm/sec TR max P.9 mmHg MV E/A: 0.84 PA V2 max: 103.8 cm/sec Med Peak E' Ari: 7.7 cm/sec PA V2 mean: 77.5 cm/sec E/E' med: 8.2 PA mean P.6 mmHg Lat Peak E' Ari: 10.1 cm/sec PA pr(Accel): 46.5 mmHg E/E' lat: 6.3 E/e' average: 7.2 MV dec time: 0.24 sec SV(LVOT): 102.0 ml Reading Physician:12:55 PM
== END ==
LOC: ECHO 10:24
PROVIDERS: Family Provider Internal Medicine; PCP Family Medicine; Referring Provider Internal Medicine Cardiovascular Disease; Visit Provider Internal Medicine Cardiovascular Disease
DX: I77.810 Thoracic aortic ectasia (principal); I77.89 Other specified disorders of arteries and arterioles
CPT/HCPCS: 93306

== ENCOUNTER → 2024-05-09 07:35 | Outpatient (CLI) | payer MEDICARE, SELFPAY ==
[2024-05-09 08:18] LABS: Add Manual Diff / Slide Review NO; Basophils Absolute Auto 100 /uL (0-100); Basophils Percent Auto 0.8 % (0-2); Eosinophils Absolute Auto 200 /uL (0-450); Eosinophils Percent Auto 1.9 % (2-4); Hematocrit 45.7 % (41-53); Hemoglobin 15.4 g/dL (13.5-17.5); Lymphocytes Absolute Auto 2400 /uL (1100-4500); Lymphocytes Percent Auto 30.6 % (25-40); Mean Corpuscular HGB Conc 33.6 % (30-36); Mean Corpuscular Hemoglobin 31.3 PG (26-34); Monocytes Absolute Auto 700 /uL (0-900); Monocytes Percent Auto 8.4 % (3-14); Neutrophils Absolute Auto 4700 /uL (1500-7000); Neutrophils Percent Auto 58.3 % (50-75); Platelet Count 250 X10^3/uL (150-400); Red Blood Cell Count 4.92 X10^6/uL (4.5-5.9); Red Cell Distribution Width 13.8 % (11.6-14.8)
[2024-05-09 08:39] LABS: Hemoglobin A1C% w Est Avg Glu 6.1 % (4.0-6.0)
[2024-05-09 09:42] LABS: BUN Creatinine Ratio 24.7 (6-22); Blood Urea Nitrogen 21 mg/dL (9-20); Calcium 9.7 mg/dL (8.4-10.2); Carbon Dioxide 24 mmol/L (22-32); Chloride 103 mmol/L (98-107); Cholesterol 183 mg/dL (140-199); Estimated Glomerular Filt Rate > 60 mL/min (>60); Glucose 132 mg/dL (80-110); HDL Cholesterol 51 mg/dL (40-60); HEMOLYSIS < 15 (0-50); LDL Cholesterol Calculated 112 mg/dL (<100); Potassium 3.9 mmol/L (3.4-5.1); Sodium 138 mmol/L (137-145); Triglycerides 100 mg/dL (35-150)
[2024-05-09 10:08] LABS: Prostate Specific Antigen 1.85 ng/mL (0.10-4.00)
== END ==
PROVIDERS: Family Provider Internal Medicine; PCP Family Medicine; Referring Provider Internal Medicine Cardiovascular Disease; Visit Provider Internal Medicine Cardiovascular Disease
DX: I10 Essential (primary) hypertension (principal); E11.9 Type 2 diabetes mellitus without complications; Z12.5 Encounter for screening for malignant neoplasm of prostate; Z79.01 Long term (current) use of anticoagulants
CPT/HCPCS: 36415; 80048; 80061; 83036; 84153; 85025